=== PATIENT | male | born 1960 | race Caucasian/White ===

== ENCOUNTER → 2016-11-29 | Outpatient (CLI) | payer OTHER ==
[~2016-11-29] MED LIST: ADVICOR 1,001 BOTTL1 PO; ASPIRIN81 M2 PO; AVAPRO150 MG PO; FLEXERIL10 MG PO; LOPRESSOR PO; LOVAZA1 G PO; METFORMIN PO; NOVOLOG100 U/M3 SUBQ; OXYCODON-ACETA1 EAC1 PO; PLAVIX PO; PROAIR HFA8.5 GM INH; SYMBICORT 80-10.2 GM INH; TYLENOL #3 PO
--- NOTE | ~2016-11-29 | MR164 ---
[facility] A Service of [facility] RADIOLOGY TEXT RESULTS PATIENT: BE SUTTON LOCATION: [facility] : 56 UNIT #: [id number] AGE: [address]: Michael Zheng MD SEX: M ORDER DR: [id number] [address] [address] [id number] MR#: [id number] Acc #: [id number] NAME: BE SUTTON : 1960 SEX: M STUDY DATE/TIME: 11/29/2016 8:48 UNIT: [facility] ROOM: STUDY DESCRIPTION: MR Shoulder Wo Contrast Lt Attending Physician: Michael Zheng M.D. Referring Physician: Michael Zheng M.D. Ordering Physician: Michael Zheng M.D. Primary Care Physician: Nayeli Cortez M.D. [facility] REPORT This report is preliminary unless electronic signature is present. EXAM MRI of the left shoulder HISTORY 56-year-old male complains of increasing left shoulder pain. Decreasing range of motion and strength for 3-4 months. COMPARISON Left shoulder films 09/27/2016. FINDINGS Multiplanar, multiecho imaging was performed of the left shoulder utilizing a high field magnet and dedicated protocol. Examination demonstrates mild AC joint arthropathy with both superiorly and inferiorly directed distal clavicular osteophytes. Minimal periarticular inflammation. Small amount of fluid and inflammation within the axillary recess nonspecific. Rotator cuff appears intact without high-grade tendinopathy or tear. No muscle atrophy or edema. Superior labrum, biceps anchor and long tendon of the biceps appears intact. IMPRESSION 1. Mild AC joint arthropathy with a small amount of periarticular inflammation. 2. Nonspecific inflammation in the region of the axillary recess and anterior inferior joint capsule nonspecific but can be associated with adhesive capsulitis. 3. No evidence of rotator cuff tear. Dictated by... [facility] A Service of [facility] RADIOLOGY TEXT RESULTS PATIENT: BE SUTTON LOCATION: [facility] : 56 UNIT #: [id number] AGE: [address]: Michael Zheng MD SEX: M ORDER DR: Kristian Moran M.D. THIS IS AN ELECTRONICALLY VERIFIED REPORT Kristian Moran M.D. at 12/03/2016 9:02 AM ELZBIETA/mini TD: 12/02/2016 12:01 JOB #: [id number] MRI [facility]ENTER REPORT Page 1 of 1
== END | disposition home or self-care (01) ==
LOC: SMRI 07:50
DX: M25.512 Pain in left shoulder (principal); M19.012 Primary osteoarthritis, left shoulder
CPT/HCPCS: 73221